=== PATIENT | male | born 1955 | race Caucasian/White ===

== ENCOUNTER → 2019-06-18 | Outpatient (CLI) | payer OTHER ==
[2019-06-18 09:16] LABS: APPEARANCE,URINE CLEAR (CLEAR); BILIRUBIN,URINE NEGATIVE (NEGATIVE); GLUCOSE, URINE (UA) 100 mg/dL (NEGATIVE); KETONES,URINE NEGATIVE (NEGATIVE); LEUKOCYTE ESTERASE ,URINE NEGATIVE (NEGATIVE); NITRATE,URINE NEGATIVE (NEGATIVE); OCCULT BLOOD,URINE TRACE (NEGATIVE); PROTEIN,URINE SEE CONFIRM (NEGATIVE); UROBILINOGEN,URINE 0.2 mg/dL (<=1.0)
[2019-06-18 09:35] LABS: ALBUMIN 3.7 g/dL (3.4-5.0); BILIRUBIN,TOTAL 0.4 mg/dL (0.1-1.0); CALCIUM, TOTAL 9.6 mg/dL (8.8-10.5); CREATININE 1.41 mg/dL (0.60-1.30); POTASSIUM 4.1 mmol/L (3.5-5.1); TOTAL PROTEIN, SERUM 8.2 g/dL (6.4-8.2)
[2019-06-18 09:52] LABS: BACTERIA,URINE None Seen /HPF (None Seen); RBC,URINE 0-2 /HPF (0-2); SQUAMOUS EPITHELIAL CELL,UR None Seen /LPF (None Seen); SULFOSALICYLIC ACID,URINE 1+ (Negative); WBC,URINE None Seen /HPF (0-5)
== END | disposition home or self-care (01) ==
LOC: LABPV 08:32
PROVIDERS: ATTEND Orthopaedic Surgery
DX: C64.9 Malignant neoplasm of unspecified kidney, except renal pelvis (principal)